=== PATIENT | male | born 1990 | race Hispanic/Latino ===

== ENCOUNTER 2025-06-11 03:52 | Emergency (ER) | payer BC, SELFPAY ==
--- OUTSIDE RECORDS SUMMARY | 2023-06-20 20:13 | XMS_ITS | Continuity of Care Document ---
Author Organization [facility] Address [address] [place] [place] [address] [place] [address] Phone Care Team Providers Care Home Delivery Driver Name Role Phone Ernesto Ceja MD Unavailable Unavailable Allergies, Adverse Reactions, Alerts Substance Reaction Status Criticality No Known Allergies Active No Inform ation Procedures Procedure Date PREV VISIT, EST, AGE 18-39 OFFICE/OUTPATIENT VISIT, EST PREV VISIT, NEW, AGE 18-39 OFFICE/OUTPATIENT VISIT, NEW Advance Directives Directive Yes / No Effective Date File Name No Information Encounters Encounter Description Practice Location Reason(s) For Visit Diagnoses Date Provider Providers Copied on Encounter [facility], [place], [address] [place], [id number], tel:[phone] [facility], [place] No Information 3 Marcial Orozco. [address], [address], [address] , [place]. tel:[phone] PREV VISIT, EST, AGE 18-39 [facility], [place], [address] [place], [id number], [place] tel:[phone] [facility], [place] physical (chief complaint) Encounter for general adult medical examination without abnormal findings 3 Marcial Orozco. [address], [place], [place], [id number] , [place]. tel:[phone] OFFICE/OUTPA TIENT VISIT, EST [facility], [place], [address] [place], [id number], [place] tel:[phone] [facility] polycythem ia1 (chief complaint) HLP (chief complaint) globulin1 (chief complaint) carpal tunnel (chief complaint) shoulder pain1 (chief complaint) [place]oneuropathy[place] polycythemiaHyperli pidemiaAbnormality of globulinPain in left shoulderFatigue 2 Marcial Orozco. [address], [facility] [[email or web address] A, [place], [place], [address] , [place]. tel:[phone] PREV VISIT, NEW, AGE 18-39 [facility], [address], [place], [place], [address], [place] tel:[phone] [facility], [place] physical (chief complaint) Encounter for general adult medical exam w abnormal findingsMononeuropa thyPain in left shoulder 2 Marcial Orozco. [address], [facility] [[email or web address] A, [place], [place], [id number] , [place]. tel:[phone] Family History Family Member Type Diagnosis Age At Onset Mother Problem Diabetes mellitus Sister Problem lupus, DM Mother Problem Hypertension Father Problem Alive and well Payers Payer name Insurance type Covered alliance party ID Authoriza tion(s) No Information Social History Type Description Quantity Date Captured Comments Sex Male Smoking Status No Information Chief Complaint And Reason For Visit No Information Plan Of Treatment Date Type Action Status Referral Referred To: Jon HARDY, Андрей Perez [address]
[place] [address] [place], [place], [id number] Ordered: Referrals: Андрей Webb MD. Evaluate and treat ordered Referral Ordered: SLEEP STUDY, ATTENDED ordered Referral Ordered: Physical Therapy (related to Pain in left shoulder) ordered Referral Referred To: Edmund HARDY, David Butt [facility]
[address] [place], [place], [id number] Ordered: Referrals: David Shaffer MD. Evaluate and treat ordered Referral Ordered: US EXAM, EXTREMITY ordered Referral Referred To: Physical Therapy Ordered: Referrals: Physical Therapy. Evaluate and treat ordered History Of Present Illness Encounter Date Complaint History Of Prese nt Illness physical Pt needs annual physical Pt has history of polycythemia and mildly high TG .Pt never did follow up lab work Pt also snores and he feels chronic fatigue Pt never did sleep study either. Pt states that he has time to do all necessary work up now. Pt wants lab work and sleep study. Pt denies any other complaints shoulder pain1 Pt c/o left shou lder pain without any injury Pt denies any radiculopathy or weakness Pt denies any injury Pt had left shoulder ultrasound done and he started PT. He denies any worsening pain carpal tunnel Additional infor mation: Pt has bilateral carpal tunnel Pt denies any cold extremity or weakness. Pt has levi with hand specialist in 3 days. 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 Pt is not on any det polycythemia1 Pt has polycythe prasanna and high RBC P c/o chronic fatigue. P tc/o fatigue. physical Pt needs annual physical ,Pt c/o bilateral hand and finger numbness and tingling and hand weakness for 1.5 years Pt denies any injury. Pt had NCS with EMG done about one year ago which showed mild bilateral carpal tunnel syndrome on both side. Pt states that the symptoms are getting worse, especially at night. he feels bilateral hand cramp sometimes Pt states that he sometimes has left shoulder pain for the past few month. Pt states that he does not notice it very much during the day when he is active. He sometimes wakes up at night with left shoulder stiffness and pain. Pt denies any neck or radiculopathy from left shoulder .Pt denies any shoulder injury, redness, swelling, deformity, axillary lymph, etc . Pt has not been wearing wrist splint very much. Instructions Date Instruction Additional Infor mation No Information Assessments Type Assessment Date No Information
--- NOTE | ~2025-06-11 | CT_ITS ---
EXAMINATION: CT abdomen pelvis wo con, 06/11/2025 4:35 CDT HISTORY: L flank pain COMPARISON: No comparisons available. TECHNIQUE: CT scan of the abdomen and pelvis was performed without IV contrast. One or more of the following dose reduction techniques were used: automated exposure control, adjustment of the mA and/or kV according to patient size, use of iterative reconstruction technique. Unless otherwise stated, incidental findings do not require dedicated follow up imaging FINDINGS: CT abdomen: LUNG BASES: The lung bases are clear. The visualized portions of the heart and pericardium are unremarkable. LIVER: Mild hepatic steatosis. SPLEEN: Unremarkable, no splenomegaly. KIDNEYS: Right Kidney: Unremarkable. No calculi. No hydronephrosis. Left Kidney: Mild left hydronephrosis and hydroureter due to an obstructing distal 2 x 1 mm ureteral calculus. ADRENAL GLANDS: Unremarkable. PANCREAS: Unremarkable. GALLBLADDER/BILIARY: Unremarkable. No biliary dilatation. STOMACH AND ESOPHAGUS: Visualized stomach and esophagus within normal limits. BOWEL/MESENTERY: No colitis or diverticulitis. Mesentery normal. Small bowel normal. ADENOPATHY/RETROPERITONEUM: No lymphadenopathy. AORTA/VASCULATURE: Normal caliber aorta. FREE FLUID OR FREE AIR: None. CT pelvis: SOLID ORGANS/REPRODUCTIVE: Unremarkable. BLADDER: Within normal limits. OSSEOUS STRUCTURES: No acute osseous abnormality.No suspicious lesions. OVERLYING SOFT TISSUES: Unremarkable. IMPRESSION: 1. Left-sided obstructive uropathy Reviewed, dictated and finalized at location A.
[2025-06-11 03:55] VITALS: BP 159/79; PULSE 63; RESP 20; TEMP 36.7; O2SAT 100
[2025-06-11 04:10] VITALS: BP 159/79; PULSE 63; RESP 20; TEMP 36.7; O2SAT 100
[2025-06-11 04:24] LABS: Hematocrit 50.1 % (42.0-52.0); Hemoglobin 16.8 g/dL (14.0-18.0); Immature Granulocyte Percent A 0.5 % (0-0.5); Lymphocytes Absolute Auto 2.59 K/mm3 (0.9-3.2); Mean Corpuscular HGB Conc 33.5 g/dl (32-36); Mean Corpuscular Hemoglobin 28.1 pg (26-34); Mean Corpuscular Volume 83.8 fl (80-100); Nucleated Red Blood Cells Absolute Auto 0.000 K/mm3 (0.0-0.012); Nucleated Red Blood Cells Perc 0.0 % (0.0-0.2); Platelet Count Result 230 k/mm3 (150-375); Red Blood Count 5.98 M/mm3 (4.6-6.20); White Blood Count 8.8 K/mm3 (4.5-10.0)
[2025-06-11 04:26] LABS: Add Urine Microscopic? NO; Appearance Urine Clear (Clear); Glucose Urine UA Negative (Negative); Leukocyte Esterase Ur Negative LEU/UL (Negative); Nitrate Urine Negative (Negative); Specific Grav Ur 1.026 (1.001-1.035)
[2025-06-11] MEDS: HYDROmorphone HCL INJ (*CRX) 1 MG/ML SYR 0.5 MG IV PUSH (04:27)
[2025-06-11 04:46] LABS: Alanine Aminotransferase 30 U/L (6-50); Albumin Level 4.5 g/dL (3.5-5.1); Alkaline Phosphatase 84 U/L (38-126); Anion Gap 12 mmol/L (4-12); Aspartate Amino Transferase 42 U/L (17-59); Bilirubin,Total 0.8 mg/dL (0.2-1.3); Blood Urea Nitrogen 23 mg/dL (9-20); Calcium 9.5 mg/dL (8.4-10.2); Carbon Dioxide 23 mmol/L (22-30); Chloride 102 mmol/L (98-107); Estimated CRCL calculation 89 ml/min; Estimated Glomerular Filt Rate > 60; Glucose 151 mg/dL (65-110); Lipase 88 U/L (23-300); Potassium 3.4 mmol/L (3.4-5.0); Sodium 137 mmol/L (137-145); Total Protein 8.8 g/dL (6.3-8.2)
--- NOTE | 2025-06-11 05:04 | ED.GENADULT ---
HPI - General Adult General Chief complaint: Abdominal Pain Stated complaint: abd pain Time Seen by Provider: 06/11/25 03:59 History of Present Illness HPI narrative: This is a 34-year-old male presenting ED with a chief complaint of left flank pain. Pain started 3 hours prior to arrival. This achy pain in his flank that radiates to his left lower abdomen. He has never had pain like this before in the past. He has taken Tums and Pepto-Bismol with no relief. He has had a bowel movement with no relief. He denies any hematuria or painful urination. No fevers chills nausea vomiting or diarrhea. No history of kidney stones. Related Data Allergies Allergy/AdvReac Type Severity Reaction Status Date / Time No Known Allergies Allergy Verified 06/11/25 04:19 Exam Narrative: APPEARANCE: Patient is pacing the room Head: atraumatic. EYES: EOMI, NOSE: Atraumatic NECK: Trachea midline RESPIRATORY: No increased rate of breathing clear to auscultation CARDIOVASCULAR: RRR, no peripheral edema ABDOMINAL: Non-distended soft nontender, no CVA tenderness MUSCULOSKELETAl: No obvious deformities NEURO: Alert. Moving 4/4 extremities SKIN:: Warm, dry. Normal color PSYCHIATRIC: Normal affect Course Vital Signs Vital signs: Vital Signs Temperature 98.1 F 06/11/25 03:55 Pulse Rate 63 06/11/25 03:55 Respiratory Rate 20 06/11/25 03:55 Blood Pressure 159/79 H 06/11/25 03:55 Pulse Oximetry 100 06/11/25 03:55 Oxygen Delivery Room Air 06/11/25 03:55 Temperature 98.1 F 06/11/25 04:10 Pulse Rate 63 06/11/25 04:10 Respiratory Rate 20 06/11/25 04:10 Blood Pressure 159/79 H 06/11/25 04:10 Pulse Oximetry 100 06/11/25 04:10 Oxygen Delivery Room Air 06/11/25 03:55 Medical Decision Making [facility] Narrative Medical decision making narrative: -Course: 34-year-old male presenting with left-sided flank pain. CT showed a 1 mm stone at the UVJ. No signs of infection. Pain controlled in the ED. Patient discharged with appropriate medications Urology follow-up return precautions. -DDX includes but is not limited to: Kidney stone, muscle strain, UTI/pyelo Vital Signs Vital Signs: Vital Signs Temperature 98.1 F 06/11/25 03:55 Pulse Rate 63 06/11/25 03:55 Respiratory Rate 20 06/11/25 03:55 Blood Pressure 159/79 H 06/11/25 03:55 Pulse Oximetry 100 06/11/25 03:55 Oxygen Delivery Room Air 06/11/25 03:55 Temperature 98.1 F 06/11/25 04:10 Pulse Rate 63 06/11/25 04:10 Respiratory Rate 20 06/11/25 04:10 Blood Pressure 159/79 H 06/11/25 04:10 Pulse Oximetry 100 06/11/25 04:10 Oxygen Delivery Room Air 06/11/25 03:55 Lab Data 06/11/25 04:07 06/11/25 04:07 Labs: Lab Results 06/11/25 Range/Units 04:07 WBC 8.8 (4.5-10.0) K/mm3 RBC 5.98 (4.6-6.20) M/mm3 Hgb 16.8 (14.0-18.0) g/dL Hct 50.1 (42.0-52.0) % MCV 83.8 (80-100) fl MCH 28.1 (26-34) pg MCHC 33.5 (32-36) g/dl RDW 13.2 (11.5-14.5) % Plt Count 230 (150-375) k/mm3 MPV 10.8 H (7.4-10.4) fl Immature Gran % (Auto) 0.5 (0-0.5) % Neut % (Auto) 60.6 (45.5-73.1) % Lymph % (Auto) 29.5 (18.3-44.2) % [place] % (Auto) 8.1 (2.6-8.5) % Eos % (Auto) 0.7 (0-4.4) % Baso % (Auto) 0.6 (0.2-1.2) % Lymph # (Auto) 2.59 (0.9-3.2) K/mm3 [place] # (Auto) 0.7 H (0.1-0.6) K/mm3 Eos # (Auto) 0.1 (0-0.3) K/mm3 Baso # (Auto) 0.1 (0.0-0.1) K/mm3 Abs Immat Gran (auto) 0.04 H (0.00-0.031) K/mm3 Absolute Neuts (auto) 5.3 (1.3-6.7) K/mm3 Absolute Nucleated RBC 0.000 (0.0-0.012) K/mm3 Nucleated RBC % 0.0 (0.0-0.2) % Sodium 137 (137-145) mmol/L Potassium 3.4 (3.4-5.0) mmol/L Chloride 102 (98-107) mmol/L Carbon Dioxide 23 (22-30) mmol/L Anion Gap 12 (4-12) mmol/L BUN 23 H (9-20) mg/dL Creatinine 1.21 (0.7-1.3) mg/dL Estim Creat Clear Calc 89 ml/min Estimated GFR > 60 (59 - ) Glucose 151 H (65-110) mg/dL Calcium 9.5 (8.4-10.2) mg/dL Total Bilirubin 0.8 (0.2-1.3) mg/dL AST 42 (17-59) U/L ALT 30 (6-50) U/L Alkaline Phosphatase 84 (38-126) U/L Total Protein 8.8 H (6.3-8.2) g/dL Albumin 4.5 (3.5-5.1) g/dL Lipase 88 (23-300) U/L Urine Color Yellow (Yellow) Urine Appearance Clear (Clear) Urine pH 5.0 (5.0-9.0) Ur Specific Flora 1.026 (1.001-1.035) Urine Protein Negative (Negative) mg/dL Urine Glucose (UA) Negative (Negative) mg/dL Urine Ketones 1+ H (Negative) mg/dL Ur Blood (Man) Negative (Negative) Urine Nitrate Negative (Negative) Urine Bilirubin Negative (Negative) Urine Urobilinogen 0.2 (<2.0) mg/dL Leukocyte Esterase Rfl Negative (Negative) LISSET/UL Discharge Plan Discharge Clinical Impression: Kidney stone Patient Disposition: Home Condition: Stable Instructions: Antibiotic Form, Kidney Stones (ED) Additional Instructions: You were seen in the emergency department for a kidney stone. Please use Motrin/Tylenol for pain. Use oxycodone for breakthrough pain. Use Zofran for nausea. Please follow-up with your Urologist for further management. Please return if you develop severe pain, fevers or intractable nausea and vomiting. Patient Language: French Prescriptions: New acetaminophen 500 mg tablet 1,000 mg PO TID PRN (Reason: susan) 7 Days Qty: 42 0RF ibuprofen 800 mg tablet 800 mg PO TID PRN (Reason: pain) 7 Days Qty: 21 0RF tamsulosin [Flomax] 0.4 mg capsule 0.4 mg PO DAILY Qty: 30 0RF ondansetron 4 mg tablet,disintegrating 4 mg PO Q8H PRN (Reason: nausea and vomiting) Qty: 30 0RF oxycodone 5 mg tablet 5 mg PO Q4H PRN (Reason: pain) Qty: 10 0RF Follow-up/Referrals: Sony Paredes MD [Physician, Urology] - 1 Week Referral Note: Kidney stone UNKNOWN,DOCTOR [Primary Care Provider]
[2025-06-11] MEDS: ACETAMINOPHEN 500 MG TABLET 1000 MG PO (05:19)
[2025-06-11] MEDS: KETOROLAC 15 MG/ML VIAL (*BKC) IV PUSH (05:20)
[2025-06-11 06:14] VITALS: BP 130/95; PULSE 60; RESP 14; O2SAT 95
== END 2025-06-11 06:17 | disposition home or self-care (01) ==
PROVIDERS: Emergency Provider Emergency Medicine
DX: N13.2 Hydronephrosis with renal and ureteral calculous obstruction (principal)
CPT/HCPCS: 36415; 74176; 80053; 81003; 83690; 85025; 96374; 96375; 99284; A9270; J1171; J1885